=== PATIENT | female | born 2000 | race African-American/Black ===

== ENCOUNTER 2021-06-23 06:29 | Emergency (ER) | payer MEDICAID ==
[~2021-06-23] VITALS: Ht 152.4 cm; Wt 46.0 kg
[2021-06-23] MEDS ORDERED: ALBU8HFA IH (06:43)
[2021-06-23 06:45] VITALS: BP 118/76
== END 2021-06-23 07:00 | disposition short-term general hospital (02) ==
LOC: EMS 06:30
DX: O99.513 Diseases of the respiratory system complicating pregnancy, third trimester (principal); O26.893 Other specified pregnancy related conditions, third trimester; R25.2 Cramp and spasm; Z3A.36 36 weeks gestation of pregnancy
CPT/HCPCS: 99285; Z7502